=== PATIENT | female | born 1935 | race Caucasian/White ===

== ENCOUNTER → 2016-12-31 | Outpatient (CLI) | payer MEDICARE | LOC: RAD 15:54 | DX: R22.2 Localized swelling, mass and lump, trunk (principal); R91.8 Other nonspecific abnormal finding of lung field | CPT/HCPCS: 71020 ==

== ENCOUNTER → 2017-01-23 | Outpatient (CLI) | payer MEDICARE | LOC: CT 08:30 | DX: R22.2 Localized swelling, mass and lump, trunk (principal); I70.0 Atherosclerosis of aorta | CPT/HCPCS: 71250 ==

== ENCOUNTER 2021-03-12 17:14 | Emergency (ER) | payer MEDICARE ==
[2021-03-12 18:42] LABS: HEMOGLOBIN 12.1 gm/dl (12.3-15.3); RED BLOOD COUNT 3.63 M/UL (4.00-5.10)
[2021-03-12 19:02] LABS: BUN/CREATININE RATIO 22 (0-10)
[2021-03-12] MEDS ORDERED: OMNICEF 300 MG300 MG PO (19:16)
[2021-03-12] MEDS ORDERED: COLACE 100MG C100 MG PO (19:17)
== END 2021-03-12 20:05 | disposition home or self-care (01) ==
LOC: ER1 17:14
PROVIDERS: Physician Assistant
DX: N39.0 Urinary tract infection, site not specified (principal); K59.00 Constipation, unspecified; I11.9 Hypertensive heart disease without heart failure; Z90.49 Acquired absence of other specified parts of digestive tract; Z90.710 Acquired absence of both cervix and uterus; Z88.0 Allergy status to penicillin; Z90.89 Acquired absence of other organs
CPT/HCPCS: 80053; 81001; 82550; 82553; 83874; 84484; 85025; 87077; 87086; 87186; 96374; 99285; J0696